=== PATIENT | female | born 1965 | race Hispanic/Latino ===

== ENCOUNTER 2019-01-30 16:09 | Outpatient (CLI) | payer OTHER ==
--- NOTE | 2019-01-30 17:49 | Mammography Report ---
DIGITAL SCREENING MAMMOGRAM WITH CAD, 01/30/2019 INDICATION: Routine screening mammography. Bilateral implants. Positive family history of breast canc er with her grandmother diagnosed in her 70s. TECHNIQUE: Digital bilateral 2D mammography was obtained in the craniocaudal and mediolateral obliq ue projections. This examination was interpreted with the benefit of Computer-Aided Detection analysi s. COMPARISON: 12/23/2015 and 10/24/2014 FINDINGS: Breast Density: There are scattered areas of fibroglandular density. Bilateral implants are in place. Benign-appearing scattered calcifications again seen. There is no evidence of dominant mass, suspici ous calcifications or architectural distortion in either breast. IMPRESSION: Follow up recommendation: Routine yearly BI-RADS Category 2: Benign. A "normal" or negative report should not discourage follow up or biopsy of a clinically significant f inding. A written summary of these findings will be mailed to the patient. The patient will be entered into a mammography reporting system which will generate a reminder letter for the patient's next appointmen t at the appropriate interval. The [employer] recommends yearly mammograms starting at age 40 and continuing as l silvia as a woman is in good health. Breast MRI is recommended for women with an approximate 20-25% or greater lifetime risk of breast cancer, including women with a strong family history of breast or ova simone cancer or who have been treated for Hodgkin's disease. Signer Name: Molly Roe MD Signed: 01/30/2019 5:44 PM Workstation Name: [id number]
== END 2019-01-30 16:10 | disposition home or self-care (01) ==
LOC: SPVWC 16:09
PROVIDERS: ATTEND Obstetrics & Gynecology
DX: Z12.31 Encounter for screening mammogram for malignant neoplasm of breast (principal)
CPT/HCPCS: 77067

== ENCOUNTER 2020-02-10 08:00 | Outpatient (CLI) | payer OTHER ==
--- NOTE | 2020-02-10 09:12 | Mammography Report ---
DIGITAL SCREENING MAMMOGRAM WITH CAD, 02/10/2020 CLINICAL INFORMATION / INDICATION: Routine screening mammography. TECHNIQUE: Digital bilateral 2D mammography was obtained in the craniocaudal and mediolateral obliqu e projections. This examination was interpreted with the benefit of Computer-Aided Detection analysis . COMPARISON: 01/30/2019, 12/23/2015, 11/18/2015 FINDINGS: Breast Density: There are scattered areas of fibroglandular density. No dominant mass, suspicious calcifications, or architectural distortion in either breast. Retropectoral saline implants are intact. IMPRESSION: No mammographic evidence of malignancy. Follow up recommendation: Routine yearly BI-RADS Category 2: Benign. A "normal" or negative report should not discourage follow up or biopsy of a clinically significant f inding. A written summary of these findings will be mailed to the patient. The patient will be entered into a mammography reporting system which will generate a reminder letter for the patient's next appointmen t at the appropriate interval. The [employer] recommends yearly mammograms starting at age 40 and continuing as l silvia as a woman is in good health. Breast MRI is recommended for women with an approximate 20-25% or greater lifetime risk of breast cancer, including women with a strong family history of breast or ova simone cancer or who have been treated for Hodgkin's disease. Signer Name: Aravind De La Torre MD Signed: 02/10/2020 9:07 AM Workstation Name: [id number]
== END 2020-02-10 08:01 | disposition home or self-care (01) ==
LOC: SPVWC 08:00
PROVIDERS: ATTEND Obstetrics & Gynecology
DX: Z12.31 Encounter for screening mammogram for malignant neoplasm of breast (principal); N64.89 Other specified disorders of breast
CPT/HCPCS: 77067

== ENCOUNTER 2021-02-16 10:16 | Outpatient (CLI) | payer OTHER | END 2021-02-16 10:17 | disposition home or self-care (01) | LOC: SPVWC 10:16 | PROVIDERS: ATTEND Obstetrics & Gynecology | DX: Z12.31 Encounter for screening mammogram for malignant neoplasm of breast (principal) | CPT/HCPCS: 77067 ==